=== PATIENT | male | born 2000 | race Caucasian/White ===

== ENCOUNTER 2023-08-16 00:58 | Day surgery (SDC) | payer BC, SELFPAY ==
[2023-08-14 15:09] VITALS: BMI 19.3
--- NOTE | 2023-08-14 15:13 | PC.NURSE ---
Report to the Outpatient Waiting Room, entrance under the green pavilion located off [facility], at time 0830 on date 08/16/23. Planned Procedure Time: 1030. Time changes happen often and if your time is changed the preop area will call you the afternoon before. - You and your visitor will be asked to self-screen and do not enter if you have any COVID symptoms. - A mask is optional within the hospital at this time. Patients may have clear liquids (water, carbonated beverages, clear teas, apple juice) until 3 hours prior to surgery with a maximum of 20 ounces. - No food from midnight until time of surgery Take the following medications with a SIP of water the morning of surgery: ANTIBIOTIC, TRAMADOL IF NEEDED DO NOT STOP ANY OF YOUR OTHER PRESCRIPTION MEDICATIONS PRIOR TO SURGERY ?EXCEPT THE FOLLOWING Medications to discontinue per physician: N/A Date to take last dose: N/A Please no make-up, nail uzbek, hairspray, perfume, deodorant, or body powder the day of surgery. No jewelry (including any body piercings) or valuables the day of surgery, leave them at home. Please take a shower or bath the night before, or the morning of, surgery with an antibacterial soap. Wear comfortable, loose fitting clothing. - Jewelry must be removed prior to entering the operating room. Rings and piercings that are not removed may be cut off. - The hospital will not accept responsibility for valuables. - Please leave all valuables, including medications, at home the day of surgery. If you are going home after surgery, a licensed straddle truck driver must drive you home. - NO public transportation without another adult if you receive anesthesia. - We recommend that an adult stay with you for 24 hours following discharge. - We also recommend that you do not drive, make important decision, drink alcoholic beverages, or take any drugs that were not prescribed by your health care provider for at least 24 hours after your discharge time. Follow any additional instructions given to you from your surgeon. If you or anyone in your household have experienced Covid symptoms in the past week, please notify your surgeon or the nurse liaison at the phone number below for possible testing. Telephone instructions given to PT - ALEXANDER ROBLEDO and asked if any additional questions and then verbalized understanding. Patient advised to call surgeon office or pre surgery nurse liaison [phone] if any additional questions.
[2023-08-16] VITALS (8 sets, daily range): BP systolic 114–129; BP diastolic 75–88; PULSE 57–89; RESP 10–20; TEMP 36.4–36.6; O2SAT 95–100
--- NOTE | ~2023-08-16 | XR_ITS ---
EXAMINATION: XR abdomen/kub 1V INDICATION: Left-sided kidney stone TECHNIQUE: Supine views of the abdomen were obtained on 2 radiographs. COMPARISON: None FINDINGS: There are 11 mm stone projects in the proximal left ureter between the left L2 and L3 trans verse processes. No additional urolithiasis is identified. There is a moderate volume of colonic stoo l. The visualized lung bases are clear. IMPRESSION: 1. 11 mm stone of the proximal left ureter. Reviewed, dictated and finalized at location [facility]
--- NOTE | 2023-08-16 08:30 | WPDHPUPDATE1 ---
History and Physical Update Update Date/Time: 08/16/23 08:30 History and Physical has been reviewed, including an updated exam of the patient. There are NO changes in the patient's condition. Risks, benefits, and alternatives have been discussed and questions answered. Patient agrees to proceed with procedure. Proceed with left renal ESWL
[2023-08-16 08:32] LABS: Appearance Urine Clear (Clear); Bacteria Urine None Seen /hpf; Bilirubin Urine Negative (Negative); Color Urine Yellow (Yellow); Glucose Urine UA Negative (Negative); Ketones Urine Negative (Negative); Leukocyte Esterase Ur 1+ LEU/UL (Negative); Nitrate Urine Negative (Negative); Protein Urine Trace mg/dL (Negative); Squamous Epithelial Cell Urine None seen /hpf (Few); WBC Urine 21-50 /hpf; pH Urine 6.5 (5.0-9.0)
[2023-08-16 08:36] LABS: Add Urine Microscopic? YES
[2023-08-16] MEDS: LACTATED RINGERS 1,000 ML 30 ML IV CONT ×2 (08:50→11:23)
--- NOTE | 2023-08-16 09:14 | WPDANESEPPF ---
Anes - Initial Pre Proc Eval Procedure: Operation Date: 08/16/23 10:30 Proposed Procedures p Left Extracorporeal Shock Wave Lithotripsy - Jose Pang MD Date/Time: 08/16/23 09:14 Surgeon: Jose Pang MD Pre Op Diagnosis: left ureteral calculus Patient Data Age: 23 Gender: M Height: 1.78 m Weight: 61.25 kg Allergies Allergy/AdvReac Type Severity Reaction Status Date / Time morphine AdvReac Nausea Verified 08/16/23 08:50 Home Medications Medication Instructions Recorded Confirmed Type tamsulosin 0.4 mg capsule 0.4 mg PO DAILY 08/14/23 08/16/23 History tramadol 50 mg tablet 50 mg PO Q6H PRN Pain 08/14/23 08/16/23 History nitrofurantoin macrocrystal 100 mg 100 mg PO BID 08/16/23 08/16/23 History capsule Laboratory Tests 08/16/23 08/16/23 08:18 08:49 PT Pending INR Pending APTT Pending Urine Color Yellow (Yellow) Urine Appearance Clear (Clear) Urine pH 6.5 (5.0-9.0) Ur Specific [place] 1.020 (1.001-1.035) Urine Protein Trace mg/dL (Negative) Urine Glucose (UA) Negative mg/dL (Negative) Urine Ketones Negative mg/dL (Negative) Ur Blood (Man) Non-hemolyzed trace (Negative) Urine Nitrate Negative (Negative) Urine Bilirubin Negative (Negative) Urine Urobilinogen 1.0 mg/dL (<2.0) Leukocyte Esterase Rfl 1+ H POPEYE/UL (Negative) Urine RBC 11-20 H /hpf (0-2) Urine WBC 21-50 H /hpf Ur Squamous Epith Cells None seen /hpf (Few) Urine Bacteria None seen /hpf Urine Casts 3-5 Patient hx anesthesia problems: none Family hx anesthesia problems: none Results Review: All pre-operative results and documents have been reviewed as part of the pre-operative evaluation. [facility] Past Medical History Medical History (Updated 08/16/23 @ 09:16 by Daniel Molina MD) History of renal stone Surgical History Surgical History (Updated 08/16/23 @ 09:17 by Daniel Molina MD) H/O lithotripsy Hx of cystoscopy Social History Social History Smoking status: Former smoker Tobacco type: e-cigarettes/vaping Alcohol intake: current Alcohol use details: VERY RARE Substance use: never Substance use type: does not use Living arrangements: alone Spiritual care concerns: No Anes - Eval Final PreProcedure Day of Procedure 08/16/23 09:14 Patient weight: normal Heart: regular rate and rhythm Lungs: clear to auscultation Airway: Mallampati scale class II and special considerations poor dentition Neurological: alert and oriented Last oral intake: >/= 8 hours ASA classification: II Emergent: no Anesthetic plan: proceed Anesthesia type and monitoring: general LMA and standard monitoring Results Review: All pre-operative results and documents have been reviewed as part of the pre-operative evaluation. Informed Consent: The patient's anesthetic plan and its attendant risks and benefits were discussed with the patient/family/POA. Questions were solicited and answers provided to the satisfaction of the patient/family/POA.
[2023-08-16 09:15] LABS: Prothrombin Time 14.2 Seconds (11.1-14.7)
--- NOTE | 2023-08-16 09:36 | WPDHPUPDATE1 ---
History and Physical Update Update Date/Time: 08/16/23 09:36 History and Physical has been reviewed, including an updated exam of the patient. There are NO changes in the patient's condition. Risks, benefits, and alternatives have been discussed and questions answered. Patient agrees to proceed with procedure. Proceed with lithotripsy of left proximal /UPJ calculus
[2023-08-16] MEDS: ceFAZolin 2 GM/D5W 50 ML 2 GM/50 ML BAG IVPB (10:04)
--- NOTE | 2023-08-16 10:35 | P.OP_ITS ---
Procedure Note - Detailed Date of Procedure 08/16/23 Pre-op Diagnosis left ureteral calculus Post-op Diagnosis Same Procedure Performed Lithotripsy of left ureteral calculus 1 cm Surgeon Jose Pang MD Anesthesia General Description of Procedure Patient is taken the operative suite correctly identified. Once anesthesia was obtained the stone was localized in both planes. Two thousand five hundred shocks were given to the stone. Patient tolerated procedure well without any complications and was taken recovery stable condition. He will follow-up in 7- 10 days with [facility]. This completes dictation please send a copy of op note to my office Estimated Blood Loss 0 Drains No Packing No Pathology None sent Complications No immediate complications Condition Stable Disposition PACU
[2023-08-16] MEDS: fentaNYL CITRATE INJ (*CRX) 100 MCG/2 ML VIAL 25 MCG IV PUSH ×4 (11:10→11:24)
[2023-08-16] MEDS: oxyCODONE HCL (*CRX) 5 MG TAB IR PO (12:10)
[2023-08-16] MEDS: ONDANSETRON HCL ODT 4 MG TABLET PO (12:34)
== END 2023-08-16 12:42 | disposition home or self-care (01) ==
PROVIDERS: Visit Provider Urology
PROC: (CPT 50590; principal; 2023-08-16 10:30)
DX: N20.1 Calculus of ureter (principal); Z87.891 Personal history of nicotine dependence
CPT/HCPCS: 50590; 36415; 74018; 81001; 85610; 85730; 87086; A9270; J0690; J1100; J2250; J2405; J3010; J7120